=== PATIENT | female | born 1965 | race Caucasian/White ===

== ENCOUNTER 2020-10-24 06:22 | Day surgery (SDC) | payer OTHER ==
[2020-10-23 09:12] VITALS: BMI 43.4
[2020-10-24] MEDS ORDERED: BUPIVACAINE HCL/PF 0.25% (2.5MG/ML) 10 ML VIAL ONE (07:13)
[2020-10-24] MEDS ORDERED: MIDAZOLAM HCL 2 MG/2 ML SINGLE DOSE VIAL ONE (07:38)
[2020-10-24] MEDS ORDERED: ROCURONIUM BROMIDE 50 MG/5 ML SYRINGE ONE (07:38)
[2020-10-24] MEDS ORDERED: SUCCINYLCHOLINE CHLORIDE 200 MG/10 ML SYRINGE ONE (07:38)
[2020-10-24] MEDS ORDERED: PROPOFOL 20 ML ONE ×2 (07:38)
[2020-10-24] MEDS ORDERED: DEXAMETHASONE SOD PHOSPHATE 4 MG/1 ML VIAL ONE (08:03)
[2020-10-24] MEDS ORDERED: ONDANSETRON 4 MG/2 ML VIAL ONE (08:03)
[2020-10-24] MEDS ORDERED: ceFAZolin SODIUM 1 GM VIAL ONE (08:03)
[2020-10-24] MEDS ORDERED: NEOSTIGMINE METHYLSULFATE 0.5 MG/1 ML - 10 ML MDV ONE (09:06)
[2020-10-24] MEDS ORDERED: GLYCOPYRROLATE 0.2 MG/1 ML VIAL ONE (09:06)
[2020-10-24] MEDS ORDERED: oxyCODONE HCL 5 MG TABLET PO PRN (09:53)
[2020-10-24] MEDS ORDERED: ONDANSETRON 4 MG/2 ML VIAL IVPUSH PRN (09:53)
[2020-10-24] MEDS ORDERED: ACETAMINOPHEN 325 MG TABLET (FP) PO PRN (09:53)
[2020-10-24] MEDS ORDERED: HYDROmorphone HCL/PF 1 MG/ML VIAL IVPB PRN (09:55)
[2020-10-24] MEDS ORDERED: FAMOTIDINE 20 MG/50 ML IVPB 20 MG/50 ML MG IVPB SCH (10:00)
[2020-10-24] MEDS ORDERED: SODIUM CHLORIDE 1,000 ML IV SCH (10:00)
[2020-10-24 10:22] LABS: HEMATOCRIT 40.7 % (32.4-45.2); HEMOGLOBIN 13.6 GM/dl (10.7-15.3); MCHC 33.3 g/dl (32.0-36.0); MEAN CELL VOLUME 87.1 fl (80-96); MEAN PLT VOLUME 8.3 fl (7.5-11.1); PLATELET COUNT 216 10^3/uL (134-434); RBC 4.67 M/mm3 (3.60-5.2); RDW 14.7 % (11.6-15.6)
[2020-10-24 10:27] LABS: CALCIUM 8.4 mg/dl (8.5-10); CREATININE 0.7 mg/dl (0.55-1.3)
[2020-10-24] MEDS ORDERED: LACTATED RINGERS SOLUTION 1,000 ML IV SCH (12:30)
[2020-10-24 12:36] VITALS: PULSE 65; TEMP 98.1
[2020-10-24 12:38] VITALS: BP 122/75
== END 2020-10-24 13:00 | disposition home or self-care (01) ==
LOC: FASU 06:22
PROVIDERS: ATTEND Surgery
PROC: 0DN64ZZ Release Stomach, Percutaneous Endoscopic Approach (ICD-10-PCS; 2020-10-24)
PROC: 0DP64CZ Removal of Extraluminal Device from Stomach, Percutaneous Endoscopic Approach (ICD-10-PCS; principal; 2020-10-24 08:36)
DX: R10.13 Epigastric pain (principal); K21.9 Gastro-esophageal reflux disease without esophagitis; K95.09 Other complications of gastric band procedure; K31.89 Other diseases of stomach and duodenum; K66.0 Peritoneal adhesions (postprocedural) (postinfection)
CPT/HCPCS: 36415; 80048; 85027; 88300-TC; 88304-TC; 94760

== ENCOUNTER 2021-10-30 11:03 | Inpatient (IN) | payer OTHER ==
[2021-10-23 12:50] VITALS: BMI 47.2
[2021-10-30] MEDS ORDERED: SUCCINYLCHOLINE CHLORIDE 200 MG/10 ML SYRINGE ONE (12:13)
[2021-10-30] MEDS ORDERED: PROPOFOL 20 ML ONE (12:13)
[2021-10-30] MEDS ORDERED: fentaNYL CITRATE 250 MCG/5 ML VIAL ONE (12:13)
[2021-10-30] MEDS ORDERED: MIDAZOLAM HCL 2 MG/2 ML SINGLE DOSE VIAL ONE ×2 (12:13)
[2021-10-30] MEDS ORDERED: ROCURONIUM BROMIDE 50 MG/5 ML SYRINGE ONE (12:47)
[2021-10-30] MEDS ORDERED: CLINDAMYCIN PHOSPHATE 600 MG/4 ML VIAL ONE (12:53)
[2021-10-30] MEDS ORDERED: BUPIVACAINE HCL/PF 0.25% (2.5MG/ML) 10 ML VIAL ONE (13:10)
[2021-10-30] MEDS ORDERED: DEXAMETHASONE SOD PHOSPHATE 4 MG/1 ML VIAL ONE (13:18)
[2021-10-30] MEDS ORDERED: ONDANSETRON 4 MG/2 ML VIAL ONE (13:18)
[2021-10-30] MEDS ORDERED: BUPIVACAINE HCL/PF 0.25% (2.5MG/ML) 10 ML VIAL IJ ONE (14:24)
[2021-10-30] MEDS ORDERED: NEOSTIGMINE METHYLSULFATE 0.5 MG/1 ML - 10 ML MDV ONE (14:34)
[2021-10-30] MEDS ORDERED: GLYCOPYRROLATE 0.2 MG/1 ML VIAL ONE (14:41)
[2021-10-30] MEDS ORDERED: ONDANSETRON 4 MG/2 ML VIAL IVPB PRN (14:42)
[2021-10-30] MEDS ORDERED: HYDROmorphone HCl 2 MG/ML VIAL IVPB PRN (14:43)
[2021-10-30] MEDS ORDERED: ONDANSETRON 4 MG/2 ML VIAL IVPUSH PRN (14:56)
[2021-10-30] MEDS ORDERED: PROMETHAZINE HCL 25 MG/1 ML VIAL IVPUSH PRN (14:56)
[2021-10-30] MEDS ORDERED: ACETAMINOPHEN 1000 MG/100 ML BAG IVPB ONE (14:57)
[2021-10-30] MEDS ORDERED: LACTATED RINGERS SOLUTION 1,000 ML IV SCH (15:00)
[2021-10-30] MEDS ORDERED: FENTANYL CITRATE/PF 50 MCG/ML VIAL ONE (15:01)
[2021-10-30] MEDS: METOCLOPRAMIDE HCL INJECTION 10 MG/2 ML VIAL IVPUSH SCH ×2 (15:05→20:11)
[2021-10-30 15:19] LABS: HEMATOCRIT 42.9 % (32.4-45.2); HEMOGLOBIN 14.7 G/dL (10.7-15.3); MCH 30.4 pg (25.7-33.7); MCHC 34.2 g/dl (32.0-36.0); MEAN CELL VOLUME 88.8 fl (80-96); MEAN PLT VOLUME 8.3 fl (7.5-11.1); PLATELET COUNT 249.5 10^3/uL (134-434); RBC 4.83 10^6/uL (3.60-5.2); RDW 15.1 % (11.6-15.6); WHITE BLOOD COUNT 13.1 10^3/uL (4.0-10.8)
[2021-10-30 15:28] LABS: ALBUMIN 4.1 g/dl (3.4-5.0); BILIRUBIN,TOTAL 0.9 mg/dl (0.2-1); CALCIUM 9.2 mg/dl (8.5-10); CREATININE 0.8 mg/dl (0.55-1.3)
[2021-10-30] MEDS: SODIUM CHLORIDE 1,000 ML IV SCH (17:44)
[2021-10-30] MEDS: HYDROmorphone HCl 2 MG/ML VIAL IVPB PRN (20:11)
[2021-10-30] MEDS: FAMOTIDINE 20 MG/50 ML IVPB 20 MG/50 ML MG IVPB SCH (21:16)
[2021-10-30 21:41] LABS: HEMATOCRIT 41.6 % (32.4-45.2); HEMOGLOBIN 14.3 G/dL (10.7-15.3); MCH 30.4 pg (25.7-33.7); MCHC 34.3 g/dl (32.0-36.0); MEAN CELL VOLUME 88.6 fl (80-96); PLATELET COUNT 229.5 10^3/uL (134-434); RBC 4.69 10^6/uL (3.60-5.2); RDW 15.3 % (11.6-15.6)
[2021-10-30 21:57] LABS: ALBUMIN 3.8 g/dl (3.4-5.0); BILIRUBIN,TOTAL 0.6 mg/dl (0.2-1); CALCIUM 8.9 mg/dl (8.5-10); CREATININE 0.7 mg/dl (0.55-1.3); TOT PROT 6.5 g/dl (6.4-8.2)
[2021-10-31] MEDS: METOCLOPRAMIDE HCL INJECTION 10 MG/2 ML VIAL IVPUSH SCH ×2 (02:28→08:48)
[2021-10-31] MEDS: HYDROmorphone HCl 2 MG/ML VIAL IVPB PRN (03:56)
[2021-10-31 08:16] LABS: HEMOGLOBIN 12.6 G/dL (10.7-15.3); MCH 30.1 pg (25.7-33.7); MCHC 34.1 g/dl (32.0-36.0); MEAN CELL VOLUME 88.3 fl (80-96); MEAN PLT VOLUME 8.4 fl (7.5-11.1); PLATELET COUNT 217.6 10^3/uL (134-434); RBC 4.19 10^6/uL (3.60-5.2); RDW 14.8 % (11.6-15.6); WHITE BLOOD COUNT 12.2 10^3/uL (4.0-10.8)
[2021-10-31 08:18] LABS: ALBUMIN 3.4 g/dl (3.4-5.0); BILIRUBIN,TOTAL 0.8 mg/dl (0.2-1); CALCIUM 8.2 mg/dl (8.5-10); CREATININE 0.6 mg/dl (0.55-1.3); TOT PROT 5.7 g/dl (6.4-8.2)
[2021-10-31] MEDS: SODIUM CHLORIDE 1,000 ML IV SCH (08:40)
[2021-10-31 09:21] VITALS: BP 121/64; PULSE 69; TEMP 99.1
[2021-10-31] MEDS ORDERED: oxyCODONE HCL 5 MG TABLET PO PRN (09:45)
[2021-10-31] MEDS ORDERED: ACETAMINOPHEN 325 MG TABLET (FP) PO PRN (09:46)
[2021-10-31] MEDS: FAMOTIDINE 20 MG/50 ML IVPB 20 MG/50 ML MG IVPB SCH (09:50)
[2021-10-31] MEDS ORDERED: SODIUM CHLORIDE 1,000 ML IV SCH (10:00)
== END 2021-10-31 13:42 | disposition home or self-care (01) | DRG 621 ==
LOC: FM/S 11:03 → UNDOADMIN 11:03
PROVIDERS: ADMIT Surgery; ATTEND Surgery
PROC: 0DNW4ZZ Release Peritoneum, Percutaneous Endoscopic Approach (ICD-10-PCS; 2021-10-30)
PROC: 0DB64Z3 Excision of Stomach, Percutaneous Endoscopic Approach, Vertical (ICD-10-PCS; principal; 2021-10-30 13:01)
PROC: 0FB24ZX Excision of Left Lobe Liver, Percutaneous Endoscopic Approach, Diagnostic (ICD-10-PCS; 2021-10-30 13:01)
DX: E66.01 Morbid (severe) obesity due to excess calories (principal); R16.0 Hepatomegaly, not elsewhere classified; Z68.42 Body mass index [BMI] 45.0-49.9, adult; K66.0 Peritoneal adhesions (postprocedural) (postinfection); K29.50 Unspecified chronic gastritis without bleeding; K76.0 Fatty (change of) liver, not elsewhere classified
CPT/HCPCS: 36415; 74240-TC-FY; 80053; 85027; 86850; 86900; 86901; 88305-TC; 94760